=== PATIENT | female | born 1955 | race African-American/Black ===

== ENCOUNTER 2017-12-18 08:55 | Emergency (ER) | payer BC ==
[~2017-12-18] VITALS: Ht 165.1 cm; Wt 110.2 kg
[~2017-12-18 08:55] MED LIST: ALBU-118 IH; FLUT1DSK2 IH; ORE25 PO
[2017-12-18 08:59] VITALS: BP 162/99
--- NOTE | 2017-12-18 09:00 | NUR ---
PATIENT AMBULATED TO ER BED 7
--- NOTE | 2017-12-18 09:05 | NUR ---
62Y/F BIB SELF C/O SOB; PT STATES "SINCE LAST NIGHT WITH MILD CHEST PAIN AND HEAD ACHE"; SEEN HERE ON WEDNESDAY FOR NEW DX OF ASTHMA; WAS NOT ABLE TO GET PRO AIR PRESCRIPTION. PT AAOX4; EVEN AND UNLABOR BREATHING; LUNG SOUNDS CLEAR; BED DOWN; BEDRAIL UP X 1; ER MD AWARE AND NOTIFIED OF PT STATUS. HX; ASTHMA RX; PROAIR
--- NOTE | 2017-12-18 09:10 | NUR ---
RT AT BEDSIDE
--- NOTE | 2017-12-18 09:13 | NUR ---
Patient being evaluated by physician at bedside.
[2017-12-18] MEDS ORDERED: ALBUTEROL SULFATE/IPRATROPIU 3 ML SOL IH ONE (09:15)
[2017-12-18] MEDS ORDERED: hydrOXYzine HCL 25 MG TAB PO ONE (09:15)
[2017-12-18 09:54] VITALS: BP 175/107
== END 2017-12-18 09:53 | disposition home or self-care (01) ==
LOC: MED 08:55
DX: J45.901 Unspecified asthma with (acute) exacerbation (principal); E11.9 Type 2 diabetes mellitus without complications; R94.31 Abnormal electrocardiogram [ECG] [EKG]; I10 Essential (primary) hypertension; Z91.14 Patient's other noncompliance with medication regimen; Z88.8 Allergy status to other drugs, medicaments and biological substances; Z79.899 Other long term (current) drug therapy; Z85.3 Personal history of malignant neoplasm of breast
CPT/HCPCS: 94640; 99283; J7620